=== PATIENT | male | born 1995 | race African-American/Black ===

== ENCOUNTER 2019-07-21 17:15 | Emergency (ER) | payer BC, OTHER ==
[2015-12-11 19:09] VITALS: BP 125/68
[~2019-07-21] VITALS: Ht 185.4 cm; Wt 68.0 kg
[2019-07-21] MEDS ORDERED: OSEL75CA PO (17:39)
[2019-07-21] MEDS ORDERED: ONDA4TAB12 PO (17:39)
[2019-07-21] MEDS ORDERED: BENZ100C PO (17:39)
--- NOTE | 2019-07-21 17:39 | PHYS DOC ---
Past Medical History Past Medical History: No Pertinent History Past Surgical History: Other Additional Past Surgical Histo: RIGHT FOOT Alcohol Use: None Drug Use: None Adult General Chief Complaint Chief Complaint: FLU SYMPTOM HPI HPI Patient is a 24 year old male who presents to the ED today complaining of flulike symptoms including fevers, body aches, chills, cough and episode of nausea and vomiting that began today. Review of Systems Review of Systems Constitutional: Reports fever, body aches. Eyes: Denies change in visual acuity, redness, or eye pain [] HENT: Denies nasal congestion or sore throat [] Respiratory: Reports cough, denies shortness of breath [] Cardiovascular: No additional information not addressed in HPI [] GI: Reports an episode of nausea and vomiting. Denies abdominal pain, bloody stools or diarrhea [] : Denies dysuria or hematuria [] Musculoskeletal: Denies back pain or joint pain [] Integument: Denies rash or skin lesions [] Neurologic: Denies headache, focal weakness or sensory changes [] All other systems were reviewed and found to be within normal limits, except as documented in this note. Current Medications Current Medications Current Medications Medications (Trade) Dose Ordered Sig/Flor Start Time Stop Time Status Last Admin Dose Admin Acetaminophen (Tylenol) 1,000 mg 1X ONCE 07/21/19 17:30 07/21/19 17:31 UNV Ibuprofen (Motrin) 800 mg 1X ONCE 07/21/19 17:30 07/21/19 17:31 UNV Ondansetron HCl (Zofran Odt) 4 mg 1X ONCE 07/21/19 17:30 07/21/19 17:31 UNV Oseltamivir Phosphate (Tamiflu) 75 mg 1X STAT 07/21/19 17:29 07/21/19 17:30 Prednisone (Prednisone) 50 mg 1X ONCE 07/21/19 17:30 07/21/19 17:31 Allergies Allergies Allergies Coded Allergies Type Severity Reaction Last Updated Verified No Known Drug Allergies 11/14/13 No Physical Exam Physical Exam Constitutional: Well developed, well nourished, no acute distress, non-toxic appearance. [] HENT: Normocephalic, atraumatic, bilateral external ears normal, oropharynx moist, no oral exudates, nose normal. [] Eyes: PERRLA, EOMI, conjunctiva normal, no discharge. [] Neck: Normal range of motion, no tenderness, supple, no stridor. [] Cardiovascular:Heart rate regular rhythm, no murmur [] Lungs & Thorax: Bilateral breath sounds clear to auscultation [] Abdomen: Bowel sounds normal, soft, no tenderness, no masses, no pulsatile masses. [] Skin: Warm, dry, no erythema, no rash. [] Back: No tenderness, no CVA tenderness. [] Extremities: No tenderness, no cyanosis, no clubbing, ROM intact, no edema. [] Neurologic: Alert and oriented X 3, normal motor function, normal sensory function, no focal deficits noted. [] Psychologic: Affect normal, judgement normal, mood normal. [] EKG EKG [] Radiology/Procedures Radiology/Procedures [] Course & Med Decision Making Course & Med Decision Making Pertinent Labs and Imaging studies reviewed. (See chart for details) This is a 24-year-old male patient presenting to the ED today with flulike symptoms including subjective fevers, body ache, chills, and an episode of vomiting, symptoms began today. Temperature 99.8. Patient has classic influenza symptoms. He is within the treatment window for Tamiflu. He was given first dose in the ED and discharged to home with a prescription. Tylenol/Motrin also recommended. Encouraged him to push fluids. Encouraged him to maintain good hand hygiene, rest. Follow-up with primary care doctor next week. Dragon Disclaimer Dragon Disclaimer This electronic medical record was generated, in whole or in part, using a voice recognition dictation system. Departure Departure Impression: Primary Impression: Fever Additional Impression: Cough Disposition: 01 HOME, SELF-CARE Condition: STABLE Referrals: NO PCP (PCP) follow up with your doctor in 1-2 weeks Patient Instructions: Cough, Adult, [id number], Fever, Adult, [id number] Additional Instructions: You were evaluated in the emergency room with symptoms suspicious of influenza. Please take the prescribed Tamiflu as ordered until completed. Take Tylenol/Motrin for pain or fever. Try and rest, push fluids. Maintain good hygiene. Follow-up with your doctor in the course of next week. Scripts Benzonatate (TESSALON PERLE) 100 Mg Capsule 1 CAP PO TID, #30 CAP Prov: MUTUNGA,SALINAS CUSTOMS COMPLIANCE ANALYST 1/24/20 Ondansetron (ONDANSETRON ODT) 4 Mg Tab.rapdis 1 TAB PO PRN Q6-8HRS PRN for VOMITING, #16 TAB Prov: SALINAS WILSON [employer] COMPLIANCE ANALYST 07/21/19 Oseltamivir Phosphate (TAMIFLU) 75 Mg Capsule 1 CAP PO BID, #9 CAP Prov: SALINAS WILSON APRN 07/21/19 Problem Qualifiers Primary Impression: Fever Fever type: unspecified Qualified Codes: R50.9 - Fever, unspecified SALINAS WILSON [employer]UST[employer] COMPLIANCE ANALYST Jul 21, 2019 17:39
[2019-07-21] MEDS: ONDANSETRON ODT 4 MG TAB.RAPDIS. PO ONE (17:50)
[2019-07-21] MEDS: ACETAMINOPHEN 500 MG TABLET PO ONE (17:50)
[2019-07-21] MEDS: OSELTAMIVIR 75 MG CAPSULE PO STA (17:50)
[2019-07-21] MEDS: predniSONE 10 MG TABLET PO ONE (17:51)
[2019-07-21] MEDS: IBUPROFEN 400 MG TABLET. PO ONE (17:51)
== END 2019-07-21 17:58 | disposition home or self-care (01) ==
LOC: ER 17:15
DX: R50.9 Fever, unspecified (principal); R11.2 Nausea with vomiting, unspecified; R05 Cough; Z98.890 Other specified postprocedural states; Z79.899 Other long term (current) drug therapy
CPT/HCPCS: 99284; J7512; Q0162